=== PATIENT | female | born 2000 | race Caucasian/White ===

== ENCOUNTER 2024-03-01 10:15 | Emergency (ER) | payer BC ==
[~2024-03-01] VITALS: Ht 162.6 cm; Wt 61.4 kg
[2024-03-01 10:24] VITALS: TEMP 98.4
[2024-03-01 14:10] VITALS: BP 117/76; PULSE 96
== END 2024-03-01 14:11 | disposition home or self-care (01) ==
LOC: COL.ER 10:15
DX: K59.00 Constipation, unspecified (principal)